=== PATIENT | male | born 1985 | race Caucasian/White ===

== ENCOUNTER 2018-12-22 21:54 | Emergency (ER) | payer MEDICAID ==
[~2018-12-22] VITALS: Ht 172.7 cm; Wt 72.6 kg
[2018-12-22 22:01] VITALS: Ht 172.7 cm; Wt 72.6 kg
[2018-12-22 23:44] LABS: BASOPHIL % 0.4 % (0-2); PLATELET COUNT 277 x10^3mcL (130-400); RED CELL DISTRIBUTION WIDTH 12.6 % (11.5-14.5)
[2018-12-22 23:53] LABS: AMPHETAMINE QUAL UR NONE DETECTED (See below)
[2018-12-22 23:53] LABS: CARBON DIOXIDE 29.9 mmol/L (21-32); CHLORIDE SERUM 102 mmol/L (98-107); GFR1 > 60 mL/min; GLUCOSE SERUM 99 mg/dL (74-106); POTASSIUM SERUM 3.4 mmol/L (3.5-5.1); SODIUM SERUM 140 mmol/L (136-145)
[2018-12-23] LABS: ALKALINE PHOSPHATASE 67 U/L (46-116); ALT/SGPT 27 U/L (16-63); AST/SGOT 15 U/L (15-37); BILIRUBIN TOTAL 0.3 mg/dL (0.20-1.00); TOTAL PROTEIN, SERUM 7.9 g/dL (6.4-8.2)
[2018-12-23 00:32] VITALS: BP 127/80
== END 2018-12-23 00:32 | disposition home or self-care (01) ==
LOC: ED 21:54
PROVIDERS: Emergency Medicine
DX: R55 Syncope and collapse (principal); F41.9 Anxiety disorder, unspecified; F43.9 Reaction to severe stress, unspecified; J45.909 Unspecified asthma, uncomplicated; Z88.0 Allergy status to penicillin
CPT/HCPCS: 36415; Q0092